=== PATIENT | male | born 1985 | race Caucasian/White ===

== ENCOUNTER 2021-10-27 22:19 | Emergency (ER) | payer OTHER ==
[~2021-10-27 22:19] MED LIST: VIBRAMYCIN100 MG PO
[2021-10-27 22:38] LABS: BASOPHIL 0.7 % (0-2); EOSINOPHIL 2.3 % (0-5); HCT 45.8 % (42.0-52.0); HGB 15.2 g/dl (13.2-18.0); LYMPHOCYTE 14.2 % (15-48); MCH 30.2 pg (25.0-31.0); MCHC 33.2 g/dL (32.0-36.0); MCV 91.1 fL (78.0-100.0); MPV 8.8 fL (6.0-9.5); NEUTROPHIL 75.9 % (41-80); NRBC 0; PLT 324 K/uL (150-400); RBC 5.03 M/uL (4.70-6.00); RDW 12.5 % (11.5-14.0)
[2021-10-27 22:51] LABS: AMYLASE 48 U/L (25-115); LIPASE 117 U/L (73-393)
[2021-10-27 22:58] LABS: ALBUMIN 3.5 g/dL (3.4-5.0); BILIRUBIN - TOTAL 0.4 mg/dL (0.2-1.0); BUN/CREAT RATIO (CALC) 9.8 RATIO; CREATININE 1.12 mg/dL (0.67-1.17); GLOBULIN (CALCULATION) 3.5 g/dL; POTASSIUM 3.4 mmol/L (3.5-5.1)
[2021-10-27 23:44] LABS: BILIRUBIN NEGATIVE (NEGATIVE); BLOOD NEGATIVE Ery/uL (NEGATIVE); CLARITY CLEAR (CLEAR); COLOR YELLOW (YELLOW); GLUCOSE (U) NORMAL (NORMAL); LEUKOCYTES NEGATIVE Leu/uL (NEGATIVE); NITRITE NEGATIVE (NEGATIVE); PROTEIN NEGATIVE (NEGATIVE); UROBILINOGEN 0.2 mg/dL (0.2-1.0); pH 6.5 (5.0-9.0)
[2021-10-28] MEDS ORDERED: IBUPROFEN800 MG PO (00:19)
== END 2021-10-28 00:27 | disposition home or self-care (01) ==
LOC: FER 22:19
PROVIDERS: Emergency Medicine
DX: S30.1XXA Contusion of abdominal wall, initial encounter (principal); V03.90XA Pedestrian on foot injured in collision with car, pick-up truck or van, unspecified whether traffic or nontraffic accident, initial encounter; Y93.01 Activity, walking, marching and hiking; Y92.410 Unspecified street and highway as the place of occurrence of the external cause
CPT/HCPCS: 36415; 71260; 80053; 81003; 82150; 83690; 85025; J1885; J2405; Q9967